=== PATIENT | female | born 1995 | race Caucasian/White ===

== ENCOUNTER 2016-10-17 16:39 | Emergency (ER) | payer BC ==
[~2016-10-17] VITALS: Ht 165.1 cm; Wt 56.7 kg
[2016-10-17] MEDS ORDERED: IBUPROFEN 600 MG TABLET PO ONE ×2 (17:49→18:00)
[2016-10-17] MEDS ORDERED: ACETAMINOPHEN ES 500 MG TABLET ONE (17:49)
[2016-10-17] MEDS ORDERED: ACETAMINOPHEN 325 MG TABLET PO ONE (18:00)
[2016-10-17 19:00] LABS: KETONES,URINE Negative (NEGATIVE); LEUKOCYTE ESTERASE ,URINE Small (NEGATIVE)
[2016-10-17 19:02] LABS: ADD UA MICROSCOPIC YES
[2016-10-17 19:14] LABS: PREGNANCY TEST URINE QUAL NEGATIVE (NEGATIVE)
[2016-10-17 19:21] LABS: ADD URINE CULTURE YES
[2016-10-17] MEDS ORDERED: CEFTRIAXONE 1 G VIAL ONE (19:27)
[2016-10-17] MEDS ORDERED: LIDOCAINE /MPF 1% VIAL 5 ML VIAL ONE (19:28)
[2016-10-17] MEDS ORDERED: CEFTRIAXONE 1 G VIAL IM ONE (19:30)
[2016-10-17 19:49] VITALS: BP 124/62
== END 2016-10-17 19:50 | disposition home or self-care (01) ==
LOC: ER 16:56
DX: N12 Tubulo-interstitial nephritis, not specified as acute or chronic (principal)
CPT/HCPCS: 81001; 84703; 87077; 87086; 87186; 96372; 99284; A4606; J0696; J3490; Z7610; 81000-TC